=== PATIENT | male | born 1960 | race Caucasian/White ===

== ENCOUNTER 2021-09-30 17:27 | Emergency (ER) | payer BC, SELFPAY ==
[2021-09-30 17:37] VITALS: BP 96/67; PULSE 62; RESP 18; TEMP 35.9; O2SAT 98; BMI 23.0
--- NOTE | 2021-09-30 18:06 | ED.GENADULT ---
HPI - General Adult General Time Seen by Provider: 18:06 Date Seen: 09/30/21 Chief complaint: Eye Problems Stated complaint: OBJECT IN RIGHT EYE Time Seen by Provider: 09/30/21 17:28 Source: patient Mode of arrival: ambulatory Limitations: no limitations History of Present Illness HPI narrative: Patient is a 61 white male who was mowing the lawn subsequently felt some irritation in his right eye. His did a nice job of irrigating it out well, he still feels some irritation and discomfort and he presents to ED for evaluation, the right eye has been tearing. Does not have history of eye problems. Lives in [place] Related Data Allergies Allergy/AdvReac Type Severity Reaction Status Date / Time No Known Allergies Allergy Verified 09/30/21 17:37 Review of Systems Narrative: No history of eye problems, I injuries, visual problems. No history of infections PFSH PFS Medical History No significant past medical history Surgical History No significant past surgical history Social History Smoking Status: Never smoker How often do you have a drink containing alcohol: never AUDIT-C Alcohol total score: 0 Non-prescribed substance use: denies use Exam Narrative: Exam Narrative: Objective: Patient's gross visual acuity is appears normal after anesthetic drops placed in the right eye he was slightly tearing on the right eye careful inspection with head loops shows no obvious foreign body anesthetic tetracaine drops placed as well as fluorescein staining and with visualization there is no obvious corneal abrasion or laceration, was able to look under both lids and do a Q-tip sweep under both lids and got no foreign material. Offered a cycloplegic drops and he declined would simply use moisturizing drops and eye appointment tomorrow if not improved Const: Vital Signs, click to edit/add: Vital Signs - 24 hr 09/30/21 17:37 Temperature 96.6 F L Pulse Rate [Pulse Oximeter] 62 Respiratory Rate 18 Blood Pressure [Ri ght Upper Arm] 96/67 Pulse Oximetry 98 Oxygen Delivery Me thod Room Air Course Vital Signs Vital signs: Initial Vital Signs Temperature 96.6 F L 09/30/21 17:37 Temperature Source Temporal Artery Scan 09/30/21 17:37 Pulse Rate 62 09/30/21 17:37 Pulse Rhythm 09/30/21 17:37 Respiratory Rate 18 09/30/21 17:37 Blood Pressure 96/67 09/30/21 17:37 Blood Pressure Mean 76 09/30/21 17:37 Pulse Oximetry 98 09/30/21 17:37 Oxygen Delivery Method 09/30/21 17:37 Vital Signs Temperature 96.6 F L 09/30/21 17:37 Pulse Rate 62 09/30/21 17:37 Respiratory Rate 18 09/30/21 17:37 Blood Pressure 96/67 09/30/21 17:37 Pulse Oximetry 98 09/30/21 17:37 Oxygen Delivery Method 09/30/21 17:37 Temperature 96.6 F L 09/30/21 17:37 Pulse Rate 62 09/30/21 17:37 Respiratory Rate 18 09/30/21 17:37 Blood Pressure 96/67 09/30/21 17:37 Pulse Oximetry 98 09/30/21 17:37 Oxygen Delivery Method 09/30/21 17:37 Medical Decision Making MDM Narrative Medical decision making narrative: I suspect the patient had a corneal foreign body, likely irrigated out by his 's treatment. I do not see any obvious corneal abrasion laceration or foreign body. Patient declined cycloplegic I do not think he needs antibiotic drops at this time but would recommend observation overnight and then follow up with eye doctor tomorrow if still having symptoms. Can return to the ED sooner problems or concerns Discharge Plan Discharge Clinical Impression: Acute right eye pain Patient Disposition: Home w/ Parent or Adult Condition: Stable Additional Instructions: Moisturizing eyedrops, observation, do not rub or pick at the eye, eye doctor appointment tomorrow if still having symptoms. Activity Level: No Restrictions Discharge Diet: Regular Follow Up/Referrals: Ismael Bernabe MD [Primary Care Provider] - Stand Alone Forms: [employer] Info Instructions
[2021-09-30] MEDS: FLUORESCEIN SODIUM TOPICAL STRIP 1 STRIP EYE-RIGHT (18:21)
[2021-09-30] MEDS: TETRACAINE 0.5% OPHTH 2 DROP EYE-RIGHT (18:22)
== END 2021-09-30 18:23 | disposition home or self-care (01) ==
LOC: ED 18:13
PROVIDERS: Emergency Provider Family Medicine; PCP Family Medicine
DX: H57.11 Ocular pain, right eye (principal)
CPT/HCPCS: 99283; A9270